=== PATIENT | female | born 1975 | race Caucasian/White ===

== ENCOUNTER 2017-05-13 10:34 | Emergency (ER) | payer OTHER ==
[2017-05-13 11:33] LABS: BASOPHIL 0.7 % (0-2); EOSINOPHIL 4.7 % (0-5); HCT 41.3 % (37.0-47.0); HGB 15.2 g/dl (12.5-16.0); LYMPHOCYTE 37.9 % (15-48); MCH 33.8 pg (25.0-31.0); MCHC 36.8 g/dL (32.0-36.0); MCV 91.8 fL (78.0-100.0); MONOCYTE 10.9 % (0-12); MPV 9.1 fL (6.0-9.5); NEUTROPHIL 45.8 % (41-80); PLT 242 K/uL (150-400); RDW 12.2 % (11.5-14.0); WBC 5.5 K/uL (4.0-10.5)
[2017-05-13 11:34] LABS: BILIRUBIN NEGATIVE (NEGATIVE); BLOOD NEGATIVE Ery/uL (NEGATIVE); CLARITY CLEAR (CLEAR); COLOR YELLOW (YELLOW); GLUCOSE (U) NORMAL (NORMAL); KETONE (U) NEGATIVE (NEGATIVE); LEUKOCYTES NEGATIVE Leu/uL (NEGATIVE); NITRITE NEGATIVE (NEGATIVE); PROTEIN NEGATIVE (NEGATIVE); SPECIFIC GRAVITY 1.015 (1.001-1.030); UROBILINOGEN 0.2 mg/dL (0.2-1.0)
[2017-05-13 11:40] LABS: BACTERIA TRACE
[2017-05-13 11:47] LABS: AMPHETAMINES POSITIVE (NEGATIVE); BARBITURATES NEGATIVE (NEGATIVE); BENZODIAZEPINES NEGATIVE (NEGATIVE); COCAINE NEGATIVE (NEGATIVE); MARIJUANA (THC) POSITIVE (NEGATIVE)
[2017-05-13 11:48] LABS: METHADONE NEGATIVE (NEGATIVE); TRICYCLIC ANTIDEPRESSANT POSITIVE (NEGATIVE)
[2017-05-13 12:10] LABS: ACETAMINOPHEN (TYLENOL) < 5.0 ug/mL (10.0-30.0); ALCOHOL (ETOH) MEDICAL NONE DETECTED; SALICYLATE 6 ug/mL (0-300)
[2017-05-13 12:11] LABS: ALBUMIN 4.1 g/dL (3.5-5.0); BILIRUBIN - TOTAL 0.3 mg/dL (0.1-1.0); CREATININE 0.6 mg/dL (0.5-1.0); GLOBULIN (CALCULATION) 3.7 g/dL (2.2-4.2); POTASSIUM 3.3 mmol/L (3.5-5.1); TOTAL PROTEIN 7.8 g/dL (6.4-8.3)
== END 2017-05-13 20:45 | disposition home or self-care (01) ==
LOC: FER 10:34
PROVIDERS: Physician Assistant
DX: F12.288 Cannabis dependence with other cannabis-induced disorder (principal); F13.239 Sedative, hypnotic or anxiolytic dependence with withdrawal, unspecified; F15.10 Other stimulant abuse, uncomplicated; F11.23 Opioid dependence with withdrawal; F41.9 Anxiety disorder, unspecified; F17.210 Nicotine dependence, cigarettes, uncomplicated
CPT/HCPCS: 36415; 80053; 80305; 81001; 85025; 87088; G0480; J2060

== ENCOUNTER → 2021-01-15 | Day surgery (SDC) | payer OTHER ==
[~2021-01-15] MED LIST: ATIVAN0.5 MG PO; BACTRIM DS TAB1 EACH PO; COZAAR50 MG PO; GABAPENTIN800 MG PO; IBUPROFEN800 MG PO; NORCO 5-325 TA1 EACH PO; PERCOCET 5-3251 EACH PO; ZOLOFT100 MG PO
== END | disposition home or self-care (01) ==
LOC: FAS 07:13
DX: K63.5 Polyp of colon (principal); K57.30 Diverticulosis of large intestine without perforation or abscess without bleeding; K64.8 Other hemorrhoids; E78.5 Hyperlipidemia, unspecified; I10 Essential (primary) hypertension; E66.9 Obesity, unspecified; Z82.49 Family history of ischemic heart disease and other diseases of the circulatory system; Z83.3 Family history of diabetes mellitus
CPT/HCPCS: J1610; J2704; J7120